=== PATIENT | male | born 2000 | race Caucasian/White ===

== ENCOUNTER 2022-02-09 10:45 | Emergency (ER) | payer OTHER ==
[~2022-02-09] VITALS: Ht 188 cm; Wt 87.2 kg
[2022-02-09 10:46] VITALS: BP 107/54
[2022-02-09] MEDS ORDERED: ACET-897 PO (11:07)
[2022-02-09] MEDS ORDERED: ONDANSETRON 4MG ORAL DISINTEGRATING TAB PO ONE (13:40)
[2022-02-09] MEDS ORDERED: ONDA4TAB6 PO (13:48)
== END 2022-02-09 14:22 | disposition home or self-care (01) ==
LOC: M ED 10:45
DX: R11.2 Nausea with vomiting, unspecified (principal); R19.7 Diarrhea, unspecified

== ENCOUNTER 2022-05-23 09:03 | Emergency (ER) | payer OTHER ==
[~2022-05-23] VITALS: Ht 190.5 cm; Wt 89.0 kg
[2022-05-23 09:03] VITALS: BP 124/69
[~2022-05-23 09:03] MED LIST: ACET-897 PO; ONDA4TAB6 PO
[2022-05-23] MEDS ORDERED: LIDOCAINE VISCOUS 2% SOLN 15ML UDC SSP ONE (14:20)
[2022-05-23 14:32] LABS: BASO # 0.1 10^3/uL (0.0-0.2); BASO % 0.5 % (0.0-1.0); EOS % 0.3 % (0.0-3.0); HEMATOCRIT 44.8 % (42.0-52.0); HEMOGLOBIN 15.3 g/dl (13.5-17.5); LYMPH # 3.4 10^3/uL (1.5-5.0); LYMPH % 34.5 % (24.0-44.0); MEAN CORPUSCULAR HEMOGLOBIN 30.8 pg (27.0-33.0); MEAN CORPUSCULAR HGB CONC 34.2 g/dl (32.0-36.5); MEAN CORPUSCULAR VOLUME 90.1 fl (80.0-96.0); MONO # 0.9 10^3/uL (0.0-0.8); MONO % 8.7 % (2.0-8.0); NEUTROPHILS # 5.6 10^3/uL (1.5-8.5); NEUTROPHILS % 55.8 % (36.0-66.0); PLATELET COUNT, AUTOMATED 190 10^3/uL (150-450); RED BLOOD COUNT 4.97 10^6/uL (4.30-6.10)
[2022-05-23 15:01] LABS: MONO SCRN POSITIVE (NEGATIVE)
[2022-05-23] MEDS ORDERED: LIDO2SOL17 PO (15:12)
== END 2022-05-23 15:22 | disposition home or self-care (01) ==
LOC: M ED 09:03
DX: B27.90 Infectious mononucleosis, unspecified without complication (principal); R59.9 Enlarged lymph nodes, unspecified